=== PATIENT | male | born 1950 | race Caucasian/White ===

== ENCOUNTER 2016-03-07 09:23 | Day surgery (SDC) | payer OTHER ==
[2016-03-07] MEDS ORDERED: LACTATED RINGERS 1,000 ML IV ONE (10:49)
[2016-03-07] MEDS ORDERED: MIDAZOLAM 2 MG/2 ML VIAL IVP ONE (11:52)
[2016-03-07] MEDS ORDERED: fentaNYL 250 MCG/5 ML VIAL IVP ONE (11:52)
== END 2016-03-07 09:24 | disposition home or self-care (01) ==
PROC: 0DBN8ZZ Excision of Sigmoid Colon, Via Natural or Artificial Opening Endoscopic (ICD-10-PCS; 2016-03-07)
PROC: 0DBK8ZZ Excision of Ascending Colon, Via Natural or Artificial Opening Endoscopic (ICD-10-PCS; principal; 2016-03-07 10:45)
DX: Z12.11 Encounter for screening for malignant neoplasm of colon (principal); D12.2 Benign neoplasm of ascending colon; D12.5 Benign neoplasm of sigmoid colon; Z87.891 Personal history of nicotine dependence
CPT/HCPCS: 45380; J3010; J7120

== ENCOUNTER 2017-02-01 15:15 | Outpatient (CLI) | payer OTHER ==
[2017-02-01 15:35] LABS: BASOPHILS % (AUTO) 0.6 %; EOSINOPHILS # (AUTO) 0.1 10^3/uL (0.0-0.7); EOSINOPHILS % (AUTO) 1.4 %; HCT - HEMATOCRIT 41.2 % (42.0-52.0); HGB - HEMOGLOBIN 14.5 g/dL (14.0-18.0); LYMPHOCYTES % (AUTO) 30.4 %; MEAN CORPUSCULAR HEMOGLOBIN 30.3 pg (27.0-31.0); MEAN CORPUSCULAR HGB CONC 35.3 g/dL (32.0-36.0); MEAN CORPUSCULAR VOLUME 85.9 fL (80.0-94.0); MEAN PLATELET VOLUME 7.3 fL (7.4-11.4); MONOCYTES # (AUTO) 0.7 10^3/uL (0.0-1.0); MONOCYTES % (AUTO) 10.6 %; NEUTROPHILS # (AUTO) 3.8 10^3/uL (1.5-6.6); NUCLEATED RED BLOOD CELLS AUTO 0.1 /100WBC; RED CELL DISTRIBUTION WIDTH 13.1 % (12.0-15.0); UNCORRECTED WHITE BLOOD COUNT 6.7 x10^3/uL; WHITE BLOOD COUNT 6.7 x10^3/uL (4.8-10.8)
[2017-02-01 15:55] LABS: ALBUMIN/GLOBULIN RATIO 1.7 (1.0-2.2); BILIRUBIN,TOTAL 0.7 mg/dL (0.2-1.0); BUN - BLOOD UREA NITROGEN 14 mg/dL (6-20); CALCIUM 9.4 mg/dL (8.5-10.3); CARBON DIOXIDE - CO2 28 mmol/L (21-32); CHLORIDE 100 mmol/L (101-111); CHOLESTEROL 202 mg/dL; CREATININE 0.8 mg/dL (0.6-1.2); GFR - MDRD 97 (>89); GLUCOSE 91 mg/dL (70-100); HDL CHOLESTEROL 50 mg/dL; POTASSIUM 3.8 mmol/L (3.5-5.0); SODIUM 139 mmol/L (135-145); TOTAL PROTEIN 7.1 g/dL (6.7-8.2); TRIGLYCERIDES 248 mg/dL; VLDL CHOLESTEROL 50 mg/dL
[2017-02-01 16:20] LABS: HEMOGLOBIN A1C 0.56 g/dL
== END 2017-02-01 15:16 | disposition home or self-care (01) ==
LOC: LAB 15:15
PROVIDERS: ATTEND Family Medicine
DX: R60.0 Localized edema (principal); E78.5 Hyperlipidemia, unspecified; R73.01 Impaired fasting glucose; I80.209 Phlebitis and thrombophlebitis of unspecified deep vessels of unspecified lower extremity
CPT/HCPCS: 36415; 80053; 80061; 83036; 85025; 85379

== ENCOUNTER 2017-02-02 19:06 | Outpatient (CLI) | payer OTHER ==
--- NOTE | 2017-02-02 20:55 | Ultrasound Preliminary Report ---
Exam: US DUPLEX EXT VEINS BILATERAL IMPRESSION: 1. Nonocclusive deep venous thrombosis within the right mid femoral vein and popliteal vein. 2. Small amount of left lateral knee fluid, could represent small knee joint effusion, measures 3.1 x 0.3 x 2.9 cm. RADIA The call report notification system was initiated by Dr. Masha Bobo at 20:51 hrs on 02/02/17. The above findings were discussed with Dr Schreiber by Dr. Masha Bobo at 20:54 hrs on 02/02/17. SITE ID: [id number]
--- NOTE | 2017-02-02 20:58 | Ultrasound Report ---
EXAM: BILATERAL LOWER EXTREMITY VENOUS ULTRASOUND EXAM DATE: 02/02/2017 07:26 PM. CLINICAL HISTORY: LEG EDEMA, BILATERAL/DEEP VENOUS THROMBOPHLEBITIS. History of right leg DVT 10 year s ago. COMPARISON: None. TECHNIQUE: Real-time sonographic vascular imaging was performed by the pulp beater through the lower extremities utilizing both color-flow and Doppler spectral analysis. Multiple agency sales representative static i mages were saved for review. FINDINGS: Right: Common Femoral Vein (CFV): Normal. CFV-GSV Junction: Normal. Profunda Femoral Vein (PFV): Normal. Femoral Vein (FV) Prox: Normal. Femoral Vein (FV) Mid: Nonocclusive deep venous thrombosis within the right mid femoral vein. Femoral Vein (FV) Dist: Normal. Popliteal Vein: Nonocclusive thrombosis. Posterior Tibial Veins: Normal. Peroneal Veins: Limited visualization. Left: Common Femoral Vein (CFV): Normal. CFV-GSV Junction: Normal. Profunda Femoral Vein (PFV): Normal. Femoral Vein (FV) Prox: Normal. Femoral Vein (FV) Mid: Normal. Femoral Vein (FV) Dist: Normal. Popliteal Vein: Normal. Posterior Tibial Veins: Normal. Peroneal Veins: Normal. Other: Small amount of left lateral knee fluid, could represent small knee joint effusion, measures 3 .1 x 0.3 x 2.9 cm. IMPRESSION: 1. Nonocclusive deep venous thrombosis within the right mid femoral vein and popliteal vein. 2. Small amount of left lateral knee fluid, could represent small knee joint effusion, measures 3.1 x 0.3 x 2.9 cm. RADIA The call report notification system was initiated by Dr. Masha Boob at 20:51 hrs on 02/02/17. The above findings were discussed with Dr Schreiber by Dr. Masha Bobo at 20:54 hrs on 02/02/17. Referring Provider Line: [phone] SITE ID: [id number]
== END 2017-02-02 19:07 | disposition home or self-care (01) ==
LOC: DI 19:06
PROVIDERS: ATTEND Family Medicine
DX: I82.411 Acute embolism and thrombosis of right femoral vein (principal); I82.431 Acute embolism and thrombosis of right popliteal vein
CPT/HCPCS: 93970

== ENCOUNTER 2017-07-06 16:35 | Emergency (ER) | payer OTHER ==
--- NOTE | 2017-07-06 18:03 | ED Physician Documentation ---
PD HPI LOWER EXT INJURY - Stated complaint Stated Complaint: LT FOOT SWOLLEN - Chief complaint Chief Complaint: Ext Problem - History obtained from History obtained from: Patient - History of Present Illness PD HPI LOW EXT INJURY LOCATION: Other (He was in [place] over the last couple of weeks, walking around in flip-flops and he got abraded over the top of the big toe started developed an infection maybe 5 days ago and was started on Bactrim without improvement. Yesterday he was started on Keflex and he feels like he is getting better he was referred here for further evaluation and treatment. He notes no fevers or chills. He is not diabetic.) Review of Systems Constitutional: denies: Fever, Chills Cardiac: denies: Chest pain / pressure, Palpitations Respiratory: denies: Dyspnea, Cough PD PAST MEDICAL HISTORY - Past Medical History Past Medical History: Yes Cardiovascular: Atrial flutter, Arrhythmia Respiratory: None Endocrine/Autoimmune: None GI: None : Other HEENT: None Psych: None Musculoskeletal: None Derm: None - Past Surgical History Past Surgical History: Yes - Present Medications Home Medications: Ambulatory Orders Medication Instructions Recorded Confirmed Cephalexin [Keflex] 0 mg 07/06/17 - Allergies Allergies/Adverse Reactions: Allergies Allergy/AdvReac Type Severity Reaction Status Date / Time No Known Drug Allergies Allergy Verified 07/06/17 16:49 - Social History Does the pt smoke?: No Smoking Status: Never smoker PD ED PE NORMAL - Vitals Vital signs reviewed: Yes - General General: Alert and oriented X 3, No acute distress - Neuro Neuro: Alert and oriented X 3, Normal speech - Psych Psych: Normal mood, Normal affect PD ED PE EXPANDED - Extremities Feet visual: 1 - rash (There is cellulitis here with a little abrasion near the lateral first metatarsal head. He has painless range of motion of the MTP and interphalangeal joint of the great toe.) Results - Vitals Vitals: Vital Signs - 24 hr 07/06/17 07/06/17 16:46 18:18 Temperature 36.4 C L Heart Rate 60 60 Respiratory 16 20 Rate Blood Pressure 141/82 H 152/105 H O2 Saturation 98 97 Oxygen O2 Source Room air - Labs Labs: Laboratory Tests 07/06/17 07/06/17 07/06/17 17:56 17:56 17:56 WBC 5.1 RBC 4.51 L Hgb 13.4 L Hct 38.5 L MCV 85.2 MCH 29.6 MCHC 34.7 RDW 13.0 Plt Count 253 MPV 7.2 L Neut # 3.0 Lymph # 1.5 [place] # 0.5 Eos # 0.1 Baso # 0.1 Absolute Nucleated RBC 0.01 Nucleated RBC % 0.2 ESR 18 Sodium 137 Potassium 4.0 Chloride 104 Carbon Dioxide 26 Anion Gap 7.0 BUN 13 Creatinine 0.8 Estimated GFR (MDRD) 97 Glucose 98 Calcium 9.4 Total Bilirubin 0.9 AST 22 ALT 16 Alkaline Phosphatase 67 C-Reactive Protein 1.7 H Total Protein 7.1 Albumin 4.1 Globulin 3.0 Albumin/Globulin Ratio 1.4 Lipase 27 PD MEDICAL DECISION MAKING - ED course ED course: 66-year-old gentleman with mild cellulitis of the left foot that seems to be responding to Keflex. The orthopedic organization development consultant, Dr. Odom did see him in the emergency department and agrees with the plan. Departure - Departure Disposition: 01 Home, Self Care Clinical Impression: Cellulitis Qualifiers: Site of cellulitis: extremity Site of cellulitis of extremity: lower extremity Laterality: left Qualified Code(s): L03.116 - Cellulitis of left lower limb Condition: Good Record reviewed to determine appropriate education?: Yes Instructions: Cellulitis Dc Comments: Recheck with Dr. Ascencio after the weekend. Return if worsening or if running fevers. Continue the cephalexin antibiotic 4 times a day. Your blood pressure was elevated today on check into the emergency department. This does not mean that you have hypertension, it is a common phenomenon to come to the emergency department and have elevated blood pressure. I recommend that you see your primary care physician within the week to have it rechecked when you are feeling better.
[2017-07-06 18:04] LABS: BASOPHILS # (AUTO) 0.1 10^3/uL (0.0-0.1); BASOPHILS % (AUTO) 1.1 %; EOSINOPHILS # (AUTO) 0.1 10^3/uL (0.0-0.7); EOSINOPHILS % (AUTO) 1.7 %; HGB - HEMOGLOBIN 13.4 g/dL (14.0-18.0); LYMPHOCYTES # (AUTO) 1.5 10^3/uL (1.5-3.5); LYMPHOCYTES % (AUTO) 29.9 %; MEAN CORPUSCULAR HEMOGLOBIN 29.6 pg (27.0-31.0); MEAN CORPUSCULAR HGB CONC 34.7 g/dL (32.0-36.0); MEAN CORPUSCULAR VOLUME 85.2 fL (80.0-94.0); MEAN PLATELET VOLUME 7.2 fL (7.4-11.4); MONOCYTES # (AUTO) 0.5 10^3/uL (0.0-1.0); MONOCYTES % (AUTO) 9.3 %; PLT - PLATELET COUNT 253 10^3/uL (130-450); RED BLOOD COUNT 4.51 10^6/uL (4.70-6.10); WHITE BLOOD COUNT 5.1 x10^3/uL (4.8-10.8)
[2017-07-06 18:22] LABS: ALBUMIN 4.1 g/dL (3.2-5.5); ALBUMIN/GLOBULIN RATIO 1.4 (1.0-2.2); BILIRUBIN,TOTAL 0.9 mg/dL (0.2-1.0); CALCIUM 9.4 mg/dL (8.5-10.3); CREATININE 0.8 mg/dL (0.6-1.2); CRP - C-REACTIVE PROTEIN 1.7 mg/dL (0-1.0); TOTAL PROTEIN 7.1 g/dL (6.7-8.2)
[2017-07-06 18:40] VITALS: BP 167/94
== END 2017-07-06 18:40 | disposition home or self-care (01) ==
LOC: ED 16:35
DX: L03.116 Cellulitis of left lower limb (principal); R03.0 Elevated blood-pressure reading, without diagnosis of hypertension
CPT/HCPCS: 36415; 80053; 83690; 85025; 85651; 86140; 99283

== ENCOUNTER 2018-03-19 15:20 | Outpatient (CLI) | payer BC ==
--- NOTE | 2018-03-20 10:17 | XRAY Report ---
Reason: FOOT PAIN,RIGHT Procedure Date: 03/19/2018 Accession Number: [id number] / [id number] Procedure: XR - Foot 3 View RT CPT Code: FULL RESULT: EXAM: RIGHT FOOT RADIOGRAPHY EXAM DATE: 03/19/2018 03:46 PM. CLINICAL HISTORY: FOOT Pain, right. Right foot pain, dominant to medial side. Patient states he noticed pain after running to the bus. COMPARISON: FOOT 3 VIEW LT 07/06/2017 3:36 PM FOOT 3 VIEW RT 05/27/2016 3:09 PM. TECHNIQUE: 3 views. FINDINGS: Bones: Normal. No fractures or bone lesions. Joints: Mild pes planus redemonstrated. Mild first MTP joint degenerative disease appears mildly progressed. Soft Tissues: Normal. No soft tissue swelling. IMPRESSION: 1. No acute abnormality. 2. Mild pes planus redemonstrated. 3. Mild first MTP joint degenerative disease, mildly progressed. RADIA
== END 2018-03-19 15:21 | disposition home or self-care (01) ==
LOC: DI 15:20
PROVIDERS: ATTEND Family Medicine
DX: M19.071 Primary osteoarthritis, right ankle and foot (principal); M21.41 Flat foot [pes planus] (acquired), right foot

== ENCOUNTER 2018-07-24 15:44 | Outpatient (CLI) | payer BC ==
[2018-07-24] MEDS ORDERED: GADOBUTROL 10 MMOL/10 ML VIAL ONE (16:21)
[2018-07-24] MEDS ORDERED: GADOBUTROL 10 MMOL/10 ML VIAL IVP ONE (17:28)
--- NOTE | 2018-07-25 06:27 | MRI Report ---
Reason: HISTORY OF KIDNEY CANCER Procedure Date: 07/24/2018 Accession Number: [id number] / [id number] Procedure: MRI - Abdomen W/WO CPT Code: FULL RESULT: EXAM: MR ABDOMEN WITH AND WITHOUT CONTRAST (MR KIDNEYS) EXAM DATE: 07/24/2018 05:00 PM. CLINICAL HISTORY: History of kidney cancer. COMPARISON: KIDNEY/ABDOMEN W/WO 07/01/2013 4:45 PM, ABD/KIDNEYS W/WO 07/08/2014 4:05 PM. TECHNIQUE: Multiplanar breath-hold T1, T2, and DWI sequences obtained through the kidneys and abdomen on an MR scanner. Images obtained before and after administration of 10 mL Gadavist intravenous contrast. Multiphase sequences obtained through the kidneys. FINDINGS: Right Kidney: Postsurgical changes within the right lower kidney from prior partial nephrectomy noted. There is no evidence of a recurrent mass demonstrated. There are a few scattered cortical cysts, largest of which measures 5 cm within the midportion of the right kidney. Previously this cyst measured 4.3 cm. No hydronephrosis demonstrated. Left Kidney: No definite suspicious left renal mass demonstrated at this time. There are a few scattered tiny cortical cysts. There is a dominant parapelvic cyst within the left mid to lower kidney anteriorly, measuring 1.9 cm, previously 1.4 cm. There is no hydronephrosis. Pancreas: There is a 1.7 cm somewhat lobular possible unilocular abnormality within the pancreatic uncinate process, previously 8 mm in maximal diameter. Equivocal communication within the pancreatic ductal system. No pathologic pancreatic ductal dilation is demonstrated at this time. No definite additional suspicious pancreatic abnormality. Conventional pancreatic ductal anatomy. Bile Ducts: There is no pathologic biliary dilation demonstrated. No choledocholithiasis. Gallbladder: No pathologic dilation. No gallstones. Liver: No suspicious abnormality. Small cyst within the superior portion of segment-2 of the liver, with lobular configuration, measuring 12 mm (image 5 series 401). A similar finding can also be seen on the prior study. Small cyst within segment-4B as well as segment-3 of the liver is present. There is a lobulated T2 hyperintense abnormality within the dome of the liver, measuring 3.3 cm, with appearance suggestive of a hemangioma. A similar finding can also be seen on the prior study. No significant change when accounting for differences in technique. Spleen: No significant abnormality. Small inferior splenule. Bowel: As visualized, there are no abnormally dilated bowel loops. Vasculature: Aorta is normal in caliber. Portal, hepatic, superior mesenteric, and splenic veins are patent as visualized. Lymph Nodes: No definite pathologic lymphadenopathy. Fluid: No pathologic free fluid. Bones: No definite suspicious bony lesions. Lower Chest: No significant consolidation or effusion as visualized. IMPRESSION: 1. Status post partial right lower nephrectomy. No evidence of local recurrence. No new suspicious renal lesion. 2. Slight enlargement of the dominant simple renal cysts bilaterally. 3. Somewhat lobulated appearing cystic lesion within the pancreatic uncinate process now measures 1.7 cm versus 8 mm previously. Current appearance is suggestive of a side branch intraductal papillary mucinous neoplasm. Additional 8 mm pancreatic uncinate process abnormality also seen adjacent to the portal vein. 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 Based on consensus guidelines, follow-up MRCP recommended at two years. 4. There is a stable 3.3 cm liver segment-7 hemangioma. RADIA
== END 2018-07-24 15:45 | disposition home or self-care (01) ==
LOC: DI 15:44
PROVIDERS: ATTEND Family Medicine
DX: Q61.02 Congenital multiple renal cysts (principal); K86.9 Disease of pancreas, unspecified; D18.03 Hemangioma of intra-abdominal structures
CPT/HCPCS: 74183; A9585

== ENCOUNTER 2019-04-09 15:18 | Outpatient (CLI) | payer OTHER ==
[2019-04-09 15:49] LABS: BASOPHILS % (AUTO) 0.7 %; EOSINOPHILS # (AUTO) 0.1 10^3/uL (0.0-0.7); EOSINOPHILS % (AUTO) 2.2 %; HGB - HEMOGLOBIN 13.9 g/dL (14.0-18.0); LYMPHOCYTES # (AUTO) 1.4 10^3/uL (1.5-3.5); LYMPHOCYTES % (AUTO) 26.5 %; MEAN CORPUSCULAR HGB CONC 34.2 g/dL (32.0-36.0); MEAN PLATELET VOLUME 9.1 fL (7.4-11.4); MONOCYTES # (AUTO) 0.6 10^3/uL (0.0-1.0); MONOCYTES % (AUTO) 10.3 %; NEUTROPHILS # (AUTO) 3.3 10^3/uL (1.5-6.6); NEUTROPHILS % (AUTO) 59.9 %; PLT - PLATELET COUNT 229 10^3/uL (130-450); RED BLOOD COUNT 4.79 10^6/uL (4.70-6.10); RED CELL DISTRIBUTION WIDTH 12.4 % (12.0-15.0); WHITE BLOOD COUNT 5.4 x10^3/uL (4.8-10.8)
[2019-04-09 16:08] LABS: ALBUMIN 4.5 g/dL (3.2-5.5); ALBUMIN/GLOBULIN RATIO 1.5 (1.0-2.2); ALKALINE PHOSPHATASE 81 IU/L (42-121); ALT ALANINE AMINOTRANSFERASE 16 IU/L (10-60); AST ASPARTATE AMINOTRANSFERASE 27 IU/L (10-42); BILIRUBIN,TOTAL 1.1 mg/dL (0.2-1.0); BUN - BLOOD UREA NITROGEN 15 mg/dL (6-20); CALCIUM 9.2 mg/dL (8.5-10.3); CARBON DIOXIDE - CO2 26 mmol/L (21-32); CHLORIDE 103 mmol/L (101-111); CHOL/HDL RATIO 3.5 (<5.0); CHOLESTEROL 190 mg/dL; CREATININE 0.8 mg/dL (0.6-1.2); GFR - MDRD 97 (>89); GLUCOSE 102 mg/dL (70-100); HDL CHOLESTEROL 54 mg/dL; LDL CHOLESTEROL,CALCULATED 123 mg/dL; LDL/HDL RATIO 2.3 (<3.6); SODIUM 139 mmol/L (135-145); TOTAL PROTEIN 7.5 g/dL (6.7-8.2); VLDL CHOLESTEROL 13 mg/dL
[2019-04-09 17:01] LABS: HB2 TOTAL 13.2 g/dL; HEMOGLOBIN A1C 0.56 g/dL
== END 2019-04-09 15:19 | disposition home or self-care (01) ==
LOC: LAB 15:18
PROVIDERS: ATTEND Family Medicine
DX: Z00.00 Encounter for general adult medical examination without abnormal findings (principal); E78.5 Hyperlipidemia, unspecified; Z12.5 Encounter for screening for malignant neoplasm of prostate
CPT/HCPCS: 36415; 80053; 80061; 83036; 83721; 84153; 84443; 85025

== ENCOUNTER 2020-06-26 14:25 | Emergency (ER) | payer MEDICARE, OTHER ==
--- NOTE | 2020-06-26 15:00 | ED Physician Documentation ---
History of Present Illness - Stated complaint Stated Complaint: BILAT SWOLLEN LEGS - Chief complaint Chief Complaint: Ext Problem - Additonal information Additional information: 69-year-old male presents the emergency department for evaluation of left lower leg swelling erythema. 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 First in the right leg than on the left. Is currently on Pradaxa. This gentleman recently moved from [place] to [facility] and about 1 week ago he hit his aquino causing a wound to the anterior lower leg. In addition to that he did sit in a car for 2-3 days while moving. Patient reports that while moving he may have missed a few doses of his Pradaxa. He also reports that he only has 1 tablet left. He noted this morning that he had significant swelling in the left leg comparatively to the right as well as some erythema surrounding the wound. He denies chest pain or shortness of air. no hemoptysis Review of Systems Constitutional: denies: Fever, Chills Eyes: reports: Reviewed and negative Ears: reports: Reviewed and negative Nose: reports: Reviewed and negative Throat: reports: Reviewed and negative Cardiac: reports: Reviewed and negative Respiratory: reports: Reviewed and negative GI: reports: Reviewed and negative : reports: Reviewed and negative Skin: reports: Lesions (Left lower anterior leg.) Musculoskeletal: reports: Reviewed and negative PD PAST MEDICAL HISTORY - Past Medical History Past Medical History: Yes Cardiovascular: Atrial flutter, Arrhythmia Respiratory: None Endocrine/Autoimmune: None GI: None : Other HEENT: None Psych: None Musculoskeletal: None Derm: None Other Past Medical History: Blood clot. - Past Surgical History Past Surgical History: Yes - Present Medications Home Medications: Ambulatory Orders Medication Instructions Recorded Confirmed Dabigatran Etexilate Mesylate 150 mg PO BID #60 06/26/20 [Pradaxa] Doxycycline Hyclate 100 mg PO BID #14 06/26/20 - Allergies Allergies/Adverse Reactions: Allergies Allergy/AdvReac Type Severity Reaction Status Date / Time No Known Drug Allergies Allergy Verified 06/26/20 14:28 - Social History Does the pt smoke?: No Smoking Status: Never smoker Does the pt drink ETOH?: Yes Does the pt have substance abuse?: No - Immunizations Immunizations are current?: No - POLST Patient has POLST: No PD ED PE EXPANDED - General General: Alert, No acute distress - Cardiac Cardiac: Regular Rate, Radial strong equal, Pedal strong equal, Cap refill < 2 sec. No: Murmur Present - Respiratory Respiratory: Clear to ausultation robert. No: Distress, Labored - Abdomen Abdomen: Normal Bowel sounds. No: Tender to palpation - Extremities Extremities: Left leg (1 cm irregular scab left lower anterior aquino with significant surrounding erythema but no induration. Nose posterior calf pain tenderness. Moderate left lower leg swelling including the foot from the knee down) - Neuro Neuro: Alert and Oriented X 3, CNII-XII intact - GCS Eye Opening: Spontaneous Motor: Obeys Commands Verbal: Oriented Total: 15 Results - Vitals Vitals: Vital Signs - 24 hr 06/26/20 14:28 Temperature 36.5 C Heart Rate 66 Respiratory 16 Rate Blood Pressure 160/80 H O2 Saturation 100 Oxygen O2 Source Room air - Labs Labs: Laboratory Tests 06/26/20 06/26/20 15:09 15:09 WBC 5.4 RBC 4.82 Hgb 14.6 Hct 41.3 L MCV 85.7 MCH 30.3 MCHC 35.4 RDW 12.5 Plt Count 231 MPV 9.4 Neut # (Auto) 3.4 Lymph # (Auto) 1.3 L [place] # (Auto) 0.6 Eos # (Auto) 0.1 Baso # (Auto) 0.0 Absolute Nucleated RBC 0.00 Nucleated RBC % 0.0 Sodium 139 Potassium 3.7 Chloride 103 Carbon Dioxide 26 Anion Gap 10.0 BUN 19 Creatinine 0.8 Estimated GFR (MDRD) 96 Glucose 101 H Calcium 9.0 Total Bilirubin 0.8 AST 57 H ALT 31 Alkaline Phosphatase 72 Total Protein 7.3 Albumin 4.5 Globulin 2.8 Albumin/Globulin Ratio 1.6 Lipase 29 - Rads (name of study) left leg US DVT Radiology: Final report received (Nonocclusive DVT is seen within the left superficial femoral vein. Nonocclusive thrombus is seen within the left peroneal vein.) PD MEDICAL DECISION MAKING - ED course Complexity details: reviewed results, re-evaluated patient ED course: 69-year-old male presents emergency department for evaluation of left lower leg erythema and concern of swelling. This is in the setting of previous DVT in both the right and left leg. This gentleman is on Pradaxa but is nearly out of his prescription. In addition to that he thinks that he may have missed a few doses while moving recently a storage locker from [place] to [facility]. He denies any chest pain or shortness of air. Unfortunately the ultrasound does suggest recurrent DVT. I think this is likely secondary to missed doses of his Pradaxa as well as immobile isolation while sitting in a car for 2 to 3 days to move from [place] to [facility]. In addition to this he does have some significant erythema and tenderness surrounding a wound on the left lower anterior aquino consistent with cellulitis. I will start him on doxycycline for this. I will renew his Pradaxa prescription and I encourage 100% compliance. Patient is to follow-up with Dr. Schreiber. He should have recurrent ultrasound repeated in about 2 weeks time. Emergent return precautions were discussed for chest pain and shortness of air. Departure - Departure Disposition: 01 Home, Self Care Clinical Impression: Left leg cellulitis Left femoral vein DVT Qualifiers: Chronicity: unspecified Qualified Code(s): I82.412 - Acute embolism and thrombosis of left femoral vein Condition: Stable Record reviewed to determine appropriate education?: Yes Instructions: Cellulitis Dc, DVT Follow-Up: Suresh Schreiber DO [Primary Care Provider] - Prescriptions: Doxycycline Hyclate 100 mg PO BID #14 Dabigatran Etexilate Mesylate [Pradaxa] 150 mg PO BID #60 Comments: Anders you're seen today in the emergency department for concerns you may have a recurrent blood clot in your left leg. Unfortunately the ultrasound does confirm this. As we discussed I think the likely cause of this blood clot today is that you may have missed a dose or 2 of your Pradaxa. In addition to that you had some immobilization and prolonged sitting while you were moving the storage locker. I have refilled your Pradaxa. Do not miss any doses. It is important that you have a repeat ultrasound in about 1 to 2 weeks to ensure that the thrombus is not extending any. You also have a superficial infection on the lower leg where your scab is. This is cellulites. please fill the prescription for the doxycycline and begin taking as directed. If at any point you develop chest pain, have shortness of air, worsening swelling please return immediately to the emergency department.
[2020-06-26 15:17] LABS: BASOPHILS % (AUTO) 0.6 %; EOSINOPHILS # (AUTO) 0.1 10^3/uL (0.0-0.7); EOSINOPHILS % (AUTO) 1.9 %; HCT - HEMATOCRIT 41.3 % (42.0-52.0); HGB - HEMOGLOBIN 14.6 g/dL (14.0-18.0); LYMPHOCYTES # (AUTO) 1.3 10^3/uL (1.5-3.5); LYMPHOCYTES % (AUTO) 23.9 %; MEAN CORPUSCULAR HEMOGLOBIN 30.3 pg (27.0-31.0); MEAN CORPUSCULAR HGB CONC 35.4 g/dL (32.0-36.0); MEAN CORPUSCULAR VOLUME 85.7 fL (80.0-94.0); MEAN PLATELET VOLUME 9.4 fL (7.4-11.4); MONOCYTES # (AUTO) 0.6 10^3/uL (0.0-1.0); MONOCYTES % (AUTO) 10.6 %; NEUTROPHILS # (AUTO) 3.4 10^3/uL (1.5-6.6); NEUTROPHILS % (AUTO) 62.8 %; PLT - PLATELET COUNT 231 10^3/uL (130-450); RED BLOOD COUNT 4.82 10^6/uL (4.70-6.10); RED CELL DISTRIBUTION WIDTH 12.5 % (12.0-15.0); WHITE BLOOD COUNT 5.4 x10^3/uL (4.8-10.8)
[2020-06-26 15:27] LABS: ALBUMIN 4.5 g/dL (3.2-5.5); ALBUMIN/GLOBULIN RATIO 1.6 (1.0-2.2); BILIRUBIN,TOTAL 0.8 mg/dL (0.2-1.0); CREATININE 0.8 mg/dL (0.6-1.2); POTASSIUM 3.7 mmol/L (3.5-5.0); TOTAL PROTEIN 7.3 g/dL (6.7-8.2)
--- NOTE | 2020-06-26 16:52 | Ultrasound Report ---
PROCEDURE: Duplex Ext Veins Left INDICATIONS: History of recurrent DVT TECHNIQUE: Real-time imaging, as well as color and pulse Doppler interrogation, were performed of the lower extr emity deep veins from the inguinal ligament to the popliteal fossa. COMPARISON: None. FINDINGS: Nonocclusive DVT is seen within the left superficial femoral vein. Nonocclusive thrombus is seen within the left peroneal vein. IMPRESSION: Left lower extremity DVT as above. Reviewed by: Ella Salomon MD on 06/26/2020 4:51 PM PDT Approved by: Ella Salomon MD on 06/26/2020 4:51 PM PDT Station ID: [id number]
[2020-06-26 17:36] VITALS: BP 161/85
== END 2020-06-26 17:42 | disposition home or self-care (01) ==
LOC: ED 14:25
DX: L03.116 Cellulitis of left lower limb (principal); I82.412 Acute embolism and thrombosis of left femoral vein; T45.516A Underdosing of anticoagulants, initial encounter; Z91.138 Patient's unintentional underdosing of medication regimen for other reason; Z79.01 Long term (current) use of anticoagulants
CPT/HCPCS: 36415; 80053; 83690; 85025; 99284

== ENCOUNTER 2020-09-01 15:29 | Outpatient (CLI) | payer MEDICARE ==
[2020-09-01 18:03] LABS: BASOPHILS % (AUTO) 0.6 %; EOSINOPHILS # (AUTO) 0.1 10^3/uL (0.0-0.7); EOSINOPHILS % (AUTO) 0.8 %; HCT - HEMATOCRIT 40.6 % (42.0-52.0); HGB - HEMOGLOBIN 14.3 g/dL (14.0-18.0); LYMPHOCYTES # (AUTO) 1.7 10^3/uL (1.5-3.5); LYMPHOCYTES % (AUTO) 25.6 %; MEAN CORPUSCULAR HEMOGLOBIN 30.7 pg (27.0-31.0); MEAN CORPUSCULAR HGB CONC 35.2 g/dL (32.0-36.0); MEAN CORPUSCULAR VOLUME 87.1 fL (80.0-94.0); MEAN PLATELET VOLUME 10.1 fL (7.4-11.4); MONOCYTES # (AUTO) 0.6 10^3/uL (0.0-1.0); MONOCYTES % (AUTO) 9.9 %; NEUTROPHILS # (AUTO) 4.1 10^3/uL (1.5-6.6); NEUTROPHILS % (AUTO) 62.9 %; PLT - PLATELET COUNT 228 10^3/uL (130-450); RED BLOOD COUNT 4.66 10^6/uL (4.70-6.10); RED CELL DISTRIBUTION WIDTH 12.5 % (12.0-15.0); WHITE BLOOD COUNT 6.5 x10^3/uL (4.8-10.8)
[2020-09-01 18:05] LABS: BILIRUBIN,URINE NEGATIVE (NEGATIVE); GLUCOSE, URINE (UA) NEGATIVE (NEGATIVE); KETONES,URINE (UA) NEGATIVE (NEGATIVE); LEUKOCYTE ESTERASE, URINE NEGATIVE (NEGATIVE); NITRITE,URINE NEGATIVE (NEGATIVE); OCCULT BLOOD,URINE NEGATIVE (NEGATIVE); PROTEIN,URINE NEGATIVE (NEGATIVE); UROBILINOGEN,URINE 0.2 (NORMAL) E.U./dL (NORMAL)
[2020-09-01 18:09] LABS: CLARITY,URINE CLOUDY (CLEAR)
[2020-09-01 18:13] LABS: AMORPHOUS SEDIMENT,UR Marked /LPF; BACTERIA,URINE Moderate /HPF (None Seen); RBC,URINE None Seen /HPF (0-5); SQUAMOUS EPITHELIAL CELL,UR NONE SEEN (<= Few); WBC,URINE 0-3 /HPF (0-3)
[2020-09-01 18:25] LABS: ALBUMIN 4.6 g/dL (3.2-5.5); ALBUMIN/GLOBULIN RATIO 1.9 (1.0-2.2); ALKALINE PHOSPHATASE 65 IU/L (42-121); ALT ALANINE AMINOTRANSFERASE 21 IU/L (10-60); AST ASPARTATE AMINOTRANSFERASE 25 IU/L (10-42); BILIRUBIN,TOTAL 0.7 mg/dL (0.2-1.0); BUN - BLOOD UREA NITROGEN 23 mg/dL (6-20); CALCIUM 9.2 mg/dL (8.5-10.3); CARBON DIOXIDE - CO2 23 mmol/L (21-32); CHLORIDE 101 mmol/L (101-111); CHOL/HDL RATIO 3.8 (<5.0); CHOLESTEROL 206 mg/dL; CREATININE 1.1 mg/dL (0.6-1.2); GFR - MDRD 67 (>89); GLUCOSE 132 mg/dL (70-100); HDL CHOLESTEROL 54 mg/dL; LDL CHOLESTEROL,CALCULATED 91 mg/dL; LDL/HDL RATIO 1.7 (<3.6); LIPASE 30 U/L (22-51); SODIUM 139 mmol/L (135-145); TRIGLYCERIDES 303 mg/dL; VLDL CHOLESTEROL 61 mg/dL
== END 2020-09-01 23:59 | disposition home or self-care (01) ==
LOC: LAB.WCP 15:29
PROVIDERS: ATTEND Family Medicine
DX: R10.32 Left lower quadrant pain (principal); E78.5 Hyperlipidemia, unspecified; Z85.528 Personal history of other malignant neoplasm of kidney; K86.9 Disease of pancreas, unspecified; Z12.5 Encounter for screening for malignant neoplasm of prostate
CPT/HCPCS: 36415; 80053; 80061; 81001; 83690; 85025; G0103; 83721; 84153; 87086

== ENCOUNTER 2020-11-18 13:57 | Outpatient (CLI) | payer MEDICARE ==
--- NOTE | 2020-11-18 17:33 | MRI Report ---
PROCEDURE: Pelvis W/O INDICATIONS: RLQ PAIN, APPENDICITIS SUSPECTED CONTRAST: None. TECHNIQUE: Images spanning from the kidneys to the pelvis. Coronal HASTE, axial 2D FLASH in- and [id number]; a xial breath-hold T2 FSE; axial STIR. Coronal T2 with fat sat. Axial thrive. Sagittal and coronal T2. COMPARISON: MRI abdomen 07/24/2018. CT abdomen and pelvis 06/11/2012. FINDINGS: Image quality: Fair. Solid organs: Kidneys: No hydronephrosis. Bilateral T2 hyperintense cysts. Susceptibility artifact a t the inferior margin of the right kidney and right lobe of liver. Suspect small splenule which is un changed. Cyst in the head of the pancreas measuring 2 x 1.2 cm, (601/31), previously 1.7 x 1.1 cm on 07/24/2018. No pancreatic ductal dilatation where visualized. No nodule identified. No restricted diffu mary jane. Nodes and vessels: No abdominal aortic aneurysm. No adenopathy identified. Bowel and peritoneum: No dilated loops of bowel seen. No inflammatory changes appreciated in the rig ht lower quadrant. The appendix is nondilated, (601/26). Bladder: No filling defect is seen. Bones and soft tissues: No focal signal abnormality. Mild DDD. IMPRESSION: Image quality is fair, degraded by artifact and body habitus. 1. The appendix is nondilated and no inflammatory changes appreciated. 2. No dilated loops of bowel. 3. Cyst in the head of the pancreas measuring 2 cm is minimally increase in size compared to 2019. Th is could represent a small sidebranch IPMN. -Recommend follow-up cross-sectional imaging of the pancreas in 2 years. 4. Susceptibility artifact at the inferior right kidney and adjacent to the inferior right lobe liver . This is likely due to prior reported partial nephrectomy. No adenopathy is identified. If clinically indicated CT abdomen and pelvis (preferably with IV contrast if tolerable) could be per formed for further evaluation. Reviewed by: Kiran Borja MD on 11/18/2020 5:32 PM PDT Approved by: Kiran Borja MD on 11/18/2020 5:32 PM PDT Station ID: [id number]
== END 2020-11-18 13:58 | disposition home or self-care (01) ==
LOC: LAB 13:57 → DI 13:58
PROVIDERS: ATTEND Family Medicine
DX: R10.31 Right lower quadrant pain (principal); K86.2 Cyst of pancreas

== ENCOUNTER 2021-12-21 11:30 | Outpatient (CLI) | payer MEDICARE ==
[2021-12-21 11:45] LABS: BASOPHILS % (AUTO) 0.5 %; EOSINOPHILS # (AUTO) 0.1 10^3/uL (0.0-0.7); EOSINOPHILS % (AUTO) 1.5 %; HCT - HEMATOCRIT 42.2 % (42.0-52.0); HGB - HEMOGLOBIN 14.3 g/dL (14.0-18.0); LYMPHOCYTES # (AUTO) 1.7 10^3/uL (1.5-3.5); LYMPHOCYTES % (AUTO) 22.3 %; MEAN CORPUSCULAR HEMOGLOBIN 29.9 pg (27.0-31.0); MEAN CORPUSCULAR HGB CONC 33.9 g/dL (32.0-36.0); MEAN CORPUSCULAR VOLUME 88.1 fL (80.0-94.0); MEAN PLATELET VOLUME 9.6 fL (7.4-11.4); MONOCYTES # (AUTO) 0.8 10^3/uL (0.0-1.0); MONOCYTES % (AUTO) 10.5 %; NEUTROPHILS # (AUTO) 4.8 10^3/uL (1.5-6.6); NEUTROPHILS % (AUTO) 64.7 %; PLT - PLATELET COUNT 220 10^3/uL (130-450); RED BLOOD COUNT 4.79 10^6/uL (4.70-6.10); RED CELL DISTRIBUTION WIDTH 12.2 % (12.0-15.0); WHITE BLOOD COUNT 7.5 x10^3/uL (4.8-10.8)
[2021-12-21 12:12] LABS: ALBUMIN 4.3 g/dL (3.2-5.5); ALBUMIN/GLOBULIN RATIO 1.4 (1.0-2.2); ALKALINE PHOSPHATASE 68 IU/L (42-121); ALT ALANINE AMINOTRANSFERASE 16 IU/L (10-60); AST ASPARTATE AMINOTRANSFERASE 19 IU/L (10-42); BILIRUBIN,TOTAL 0.5 mg/dL (0.2-1.0); BUN - BLOOD UREA NITROGEN 19 mg/dL (6-20); CALCIUM 9.2 mg/dL (8.5-10.3); CARBON DIOXIDE - CO2 27 mmol/L (21-32); CHLORIDE 103 mmol/L (101-111); CHOL/HDL RATIO 3.2 (<5.0); CHOLESTEROL 208 mg/dL; GFR - MDRD 74 (>89); GLUCOSE 113 mg/dL (70-100); HDL CHOLESTEROL 65 mg/dL; LDL CHOLESTEROL,CALCULATED 123 mg/dL; LDL/HDL RATIO 1.9 (<3.6); POTASSIUM 4.2 mmol/L (3.5-5.0); SODIUM 139 mmol/L (135-145); TOTAL PROTEIN 7.3 g/dL (6.7-8.2); TRIGLYCERIDES 99 mg/dL; VLDL CHOLESTEROL 20 mg/dL
[2021-12-21 12:15] LABS: THYROID STIMULATING HORMONE 2.46 uIU/mL (0.34-5.60)
== END 2021-12-21 11:31 | disposition home or self-care (01) ==
LOC: LAB 11:30
PROVIDERS: ATTEND Nurse Practitioner Family
DX: I10 Essential (primary) hypertension (principal); E78.5 Hyperlipidemia, unspecified
CPT/HCPCS: 36415; 80053; 80061; 83721; 84443; 85025

== ENCOUNTER 2022-12-22 07:06 | Outpatient (CLI) | payer MEDICARE ==
[2022-12-22 12:21] LABS: BASOPHILS % (AUTO) 0.4 %; EOSINOPHILS # (AUTO) 0.1 10^3/uL (0.0-0.7); EOSINOPHILS % (AUTO) 2.6 %; HCT - HEMATOCRIT 41.7 % (42.0-52.0); HGB - HEMOGLOBIN 14.6 g/dL (14.0-18.0); LYMPHOCYTES # (AUTO) 1.2 10^3/uL (1.5-3.5); LYMPHOCYTES % (AUTO) 25.8 %; MEAN CORPUSCULAR HEMOGLOBIN 30.2 pg (27.0-31.0); MEAN CORPUSCULAR VOLUME 86.3 fL (80.0-94.0); MEAN PLATELET VOLUME 9.9 fL (7.4-11.4); MONOCYTES # (AUTO) 0.7 10^3/uL (0.0-1.0); MONOCYTES % (AUTO) 14.9 %; NEUTROPHILS # (AUTO) 2.6 10^3/uL (1.5-6.6); NEUTROPHILS % (AUTO) 56.1 %; PLT - PLATELET COUNT 196 10^3/uL (130-450); RED BLOOD COUNT 4.83 10^6/uL (4.70-6.10); RED CELL DISTRIBUTION WIDTH 12.4 % (12.0-15.0); WHITE BLOOD COUNT 4.7 x10^3/uL (4.8-10.8)
[2022-12-22 12:40] LABS: ESTIMATED AVERAGE GLUCOSE 128 mg/dL (70-100); HEMOGLOBIN A1c% 6.1 % (4.27-6.07)
[2022-12-22 12:43] LABS: ALBUMIN 4.2 g/dL (3.2-5.5); ALBUMIN/GLOBULIN RATIO 1.6 (1.0-2.2); ALKALINE PHOSPHATASE 82 IU/L (42-121); ALT ALANINE AMINOTRANSFERASE 24 IU/L (10-60); AST ASPARTATE AMINOTRANSFERASE 26 IU/L (10-42); BILIRUBIN,TOTAL 0.6 mg/dL (0.2-1.0); BUN - BLOOD UREA NITROGEN 15 mg/dL (6-20); CALCIUM 9.2 mg/dL (8.5-10.3); CARBON DIOXIDE - CO2 30 mmol/L (21-32); CHLORIDE 103 mmol/L (101-111); CHOL/HDL RATIO 3.5 (<5.0); CHOLESTEROL 164 mg/dL; CREATININE 0.9 mg/dL (0.6-1.3); GFR - MDRD 83 (>89); GLUCOSE 145 mg/dL (74-104); HDL CHOLESTEROL 47 mg/dL; LDL CHOLESTEROL,CALCULATED 90 mg/dL; LDL/HDL RATIO 1.9 (<3.6); POTASSIUM 4.2 mmol/L (3.5-4.5); SODIUM 137 mmol/L (135-145); TOTAL PROTEIN 6.9 g/dL (6.4-8.9); TRIGLYCERIDES 133 mg/dL (48-352); VLDL CHOLESTEROL 27 mg/dL
[2022-12-22 12:46] LABS: THYROID STIMULATING HORMONE 3.37 uIU/mL (0.34-5.60)
== END 2022-12-22 07:07 | disposition home or self-care (01) ==
LOC: LAB.N 07:06
PROVIDERS: ATTEND Nurse Practitioner Family
DX: I10 Essential (primary) hypertension (principal); E78.5 Hyperlipidemia, unspecified; E66.9 Obesity, unspecified; Z12.5 Encounter for screening for malignant neoplasm of prostate
CPT/HCPCS: 36415; 80053; 80061; 83036; 84443; 85025; G0103; 83721; 84153

== ENCOUNTER 2023-01-01 12:11 | Outpatient (CLI) | payer MEDICARE ==
--- NOTE | 2023-01-01 20:05 | Ultrasound Report ---
PROCEDURE: Carotid Doppler Complete INDICATIONS: DIZZINESS TECHNIQUE: Color and pulse Doppler interrogation was performed of both carotid systems, with image documentation and velocity measurements. COMPARISON: None. FINDINGS: The common carotid arteries are patent and demonstrate normal flow velocities. By velocity criteria, no hemodynamically significant stenosis can be seen within the internal carotid arteries. Normal gera earing waveforms are seen. No significant atherosclerotic change can be seen. Antegrade flow seen wit hin both vertebral arteries. IMPRESSION: No hemodynamically significant stenosis is seen. Reviewed by: Sloan Sutton MD on 01/01/2023 7:03 PM [facility] Approved by: Sloan Sutton MD on 01/01/2023 7:03 PM [facility] Station ID: [id number]
== END 2023-01-01 12:12 | disposition home or self-care (01) ==
LOC: DI 12:11
PROVIDERS: ATTEND Nurse Practitioner Family
DX: R42 Dizziness and giddiness (principal); I10 Essential (primary) hypertension
CPT/HCPCS: 93880

== ENCOUNTER 2023-03-07 15:17 | Outpatient (CLI) | payer MEDICARE | END 2023-03-07 15:18 | disposition home or self-care (01) | LOC: DI 15:17 | PROVIDERS: ATTEND Nurse Practitioner Family | DX: R42 Dizziness and giddiness (principal); E78.5 Hyperlipidemia, unspecified; I77.810 Thoracic aortic ectasia; I11.9 Hypertensive heart disease without heart failure | CPT/HCPCS: 93306 ==

== ENCOUNTER 2023-03-28 10:59 | Day surgery (SDC) | payer MEDICARE ==
--- NOTE | 2023-03-28 12:38 | ANESTHESIA ---
Pre-Anesthesia VS, & Labs - Diagnosis hx colon polyps - Procedure colonoscopy Height: 5 ft 11 in Weight (kg): 107.1 kg Body Mass Index: 32.9 BMI Classification: Obese - NPO >8 hours Last Fluid Intake: am prep - Lab Results Lab results reviewed: Yes Home Medications and Allergies Home Medications: Ambulatory Orders Lisinopril [Zestril] 10 mg PO DAILY 03/22/23 amLODIPine [Norvasc] 5 mg PO BID 03/22/23 Omeprazole Magnesium 20 mg PO BID 03/28/23 Lisinopril [Zestril] 10 mg PO DAILY 03/22/23 amLODIPine [Norvasc] 5 mg PO BID 03/22/23 Omeprazole Magnesium 20 mg PO BID 03/28/23 Allergies/Adverse Reactions: Allergies Allergy/AdvReac Type Severity Reaction Status Date / Time No Known Drug Allergies Allergy Verified 03/28/23 11:35 Anes History & Medical History - Anesthetic History Anesthesia Complications: reports: No previous complications Family history of Anesthesia Complications: Denies Family history of Malignant Hyperthermia: Denies - Medical History Cardiovascular: reports: Deep vein thrombosis, Atrial flutter (ablation resolved rhythm), Arrhythmia Pulmonary: reports: Sleep apnea, CPAP use Gastrointestinal: reports: None, GERD, Hiatal hernia Urinary: reports: Frequency, Other Musculoskeletal: reports: None Endocrine/Autoimmune: reports: None Skin: reports: None, Other Smoking Status: Never smoker - Surgical History General: reports: Colonoscopy Eyes Ears Nose Throat (EENT): reports: Tonsil/Adenoidectomy Cardiothoracic: reports: Other (ablation, Afib, AFlutter) Urologic: reports: Nephrectomy Exam General: Alert, Oriented x3, Cooperative Dental: WNL Mouth Openin Fingerbreadth Neck Mobility: Normal Mallampati classification: II Respiratory: Lungs clear, Normal breath sounds, No respiratory distress Cardiovascular: Regular rate Neurological: Normal speech Mental/Cognitive Status: Alert/Oriented X3, Normal for patient Cognitive Status: Within normal limits Plan Anesthesia Type: Total IV Consent for Procedure(s) Verified and Reviewed: Yes Code Status: Attempt Resuscitation ASA classification: 3-Severe systemic disease Is this case an emergency?: No
[2023-03-28] MEDS ORDERED: MIDAZOLAM 2 MG/2 ML VIAL ONE (13:11)
[2023-03-28] MEDS ORDERED: PROPOFOL 500 MG/50 ML 500 MG/50 ML VIAL ONE (13:11)
[2023-03-28] MEDS: LACTATED RINGERS 200 ML IV ONE (13:51)
[2023-03-28 14:10] VITALS: BP 110/75; O2SAT 98
--- NOTE | 2023-03-28 14:13 | ANESTHESIA POST OP EVALUATION ---
Anesthesia Post Eval - Post Anesthesia Eval Vitals: Last Vital Signs Temp 36.7 C 03/28/23 13:51 Pulse 76 03/28/23 14:05 Resp 18 03/28/23 14:05 BP 110/75 03/28/23 14:05 Pulse Ox 98 03/28/23 14:05 O2 Flow Rate CV Function Including HR & BP: Stable Pain Control: Satisfactory Nausea & Vomiting: Negative Mental Status: Baseline Respiratory Status: Airway Patent Hydration Status: Satisfactory Anesthesia Complications: None
[2023-03-29] MEDS ORDERED: METOCLOPRAMIDE 10 MG/2 ML VIAL IVP PRN (07:00)
[2023-03-29] MEDS ORDERED: LACTATED RINGERS 1,000 ML IV SCH (07:00)
[2023-03-29] MEDS ORDERED: ATROPINE ABBOJECT 1 MG/10 ML SYRINGE IVP PRN (07:00)
[2023-03-29] MEDS ORDERED: NALOXONE 0.4 MG/ML VIAL IVP PRN (07:00)
[2023-03-29] MEDS ORDERED: ePHEDrine 50 MG/ML VIAL IVP PRN (07:00)
[2023-03-29] MEDS ORDERED: MORPHINE 2 MG/ML CARPUJECT IVP PRN (07:00)
[2023-03-29] MEDS ORDERED: HYDROmorphone 0.5 MG/0.5 ML SYRINGE IVP PRN (07:00)
[2023-03-29] MEDS ORDERED: fentaNYL 100 MCG/2 ML VIAL IVP PRN (07:00)
[2023-03-29] MEDS ORDERED: ONDANSETRON 4 MG/2 ML VIAL IVP PRN (07:00)
== END 2023-03-28 11:00 | disposition home or self-care (01) ==
LOC: SDS 10:59
PROVIDERS: ATTEND Surgery
DX: Z12.11 Encounter for screening for malignant neoplasm of colon (principal); K57.30 Diverticulosis of large intestine without perforation or abscess without bleeding; E66.9 Obesity, unspecified; Z68.32 Body mass index [BMI] 32.0-32.9, adult; Z86.010 Personal history of colon polyps; Z86.718 Personal history of other venous thrombosis and embolism; Z79.01 Long term (current) use of anticoagulants; G47.33 Obstructive sleep apnea (adult) (pediatric); Z87.891 Personal history of nicotine dependence; I10 Essential (primary) hypertension
CPT/HCPCS: G0105; J7120